=== PATIENT | female | born 1990 | race Caucasian/White ===

== ENCOUNTER 2020-11-02 15:30 | Day surgery (SDC) | payer OTHER ==
[2020-11-02 16:13] VITALS: BMI 40.8
[2020-11-02] MEDS ORDERED: hydrALAZINE 20 MG/ML VIAL SLOW IVP PRN (17:47)
== END 2020-11-02 19:15 | disposition home or self-care (01) ==
LOC: CSHLD/OP 15:30
PROVIDERS: ATTEND Advanced Practice Midwife
DX: O47.1 False labor at or after 37 completed weeks of gestation (principal); O48.0 Post-term pregnancy; Z3A.40 40 weeks gestation of pregnancy; Z88.0 Allergy status to penicillin; Z79.899 Other long term (current) drug therapy
CPT/HCPCS: 76815; 99282

== ENCOUNTER 2020-11-03 18:53 | Inpatient (IN) | payer OTHER ==
[~2020-11-03 18:53] MED LIST: Bupivacaine 0.25% HCL 30 ML VIAL ONE
[2020-11-03] MEDS ORDERED: hydrALAZINE 20 MG/ML VIAL SLOW IVP PRN ×2 (19:32→23:39)
[2020-11-03] MEDS ORDERED: Promethazine HCl 25 MG/ML VIAL IM PRN ×2 (19:32→23:39)
[2020-11-03] MEDS ORDERED: Morphine 10 MG/ML VIAL ONE (19:37)
[2020-11-03] MEDS ORDERED: Morphine 10 MG/ML VIAL IM SCH (19:45)
[2020-11-03] MEDS ORDERED: Morphine 2 MG/ML VIAL SLOW IVP SCH (20:30)
[2020-11-03] MEDS ORDERED: Lactated Ringer's 1,000 ML IV SCH ×3 (20:30→23:45)
[2020-11-03] MEDS ORDERED: Morphine 4 MG/ML VIAL ONE ×2 (20:55→23:21)
[2020-11-03] MEDS ORDERED: Morphine 4 MG/ML VIAL SLOW IVP SCH (23:30)
[2020-11-03] MEDS ORDERED: Butorphanol Tartrate 1 MG/ML VIAL SLOW IVP PRN (23:39)
[2020-11-03] MEDS ORDERED: Ondansetron PF 4 MG/2 ML Vial IVP PRN (23:39)
[2020-11-03] MEDS ORDERED: HYDROcodone/Acetaminophen 5/325 mg Tablet PO PRN (23:39)
[2020-11-03] MEDS ORDERED: Lidocaine 1% (PF) 30 ML VIAL SC PRN (23:39)
[2020-11-03] MEDS ORDERED: Ibuprofen 800 MG TAB PO PRN (23:39)
[2020-11-03] MEDS ORDERED: NS w/ Oxytocin 30 units 500 ML IV SCH (23:45)
[2020-11-03] MEDS ORDERED: Fentanyl 2 mcg/Bup 0.1% Cadd 100 ML ONE (23:58)
[2020-11-03] MEDS ORDERED: Vancomycin HCl 1 GM in Sodium Chloride 0.9% 250 ML 250 ML IVPB SCH (23:59)
[2020-11-04 00:14] LABS: Hemoglobin 12.7 g/dL (12.0-15.5); Mean Corpuscular HGB CONC 33.3 g/dL (32.0-36.0); Mean Corpuscular Hemoglobin 28.9 pg (27.0-33.0); Mean Corpuscular Volume 86.6 fl (81.6-98.3); Mean Platelet Volume 12.1 fl (7.4-10.4); Platelet Count 187 10x3/uL (150-450); RBC Distribution Width 13.1 % (11.5-14.5); White Blood Cell (WBC) Count 17.8 10x3/uL (3.5-10.5)
[2020-11-04 00:49] LABS: Hep B Surf Ag Non-Reactive S/CO (NonReactive); Syphilis Antibody Nonreactive (Nonreactive); Syphilis Antibody Index 0.03 S/CO (<1.00 Non-Reactive)
[2020-11-04] MEDS ORDERED: Naloxone HCl 0.4 mg/ml Vial IVP PRN ×2 (00:49)
[2020-11-04] MEDS ORDERED: Hydrocerin (Eucerin) Cream 120 gm Jar TOP PRN (00:49)
[2020-11-04] MEDS ORDERED: ePHEDrine Sulfate 50 MG/10 ML VIAL SLOW IVP PRN (00:49)
[2020-11-04] MEDS ORDERED: Lactated Ringer's 500 ML IV PRN (00:49)
[2020-11-04] MEDS ORDERED: Ondansetron PF 4 MG/2 ML Vial IVP PRN (00:49)
[2020-11-04] MEDS ORDERED: diphenhydrAMINE 50 MG/ML VIAL IVP PRN (00:49)
[2020-11-04] MEDS ORDERED: Acetaminophen 325 MG TAB PO PRN (00:49)
[2020-11-04] MEDS ORDERED: Promethazine HCl 25 MG/ML VIAL IM PRN (00:49)
[2020-11-04] MEDS ORDERED: Fentanyl 2 mcg/Bupivacaine 0.1% Cassette 100 ML EPIDURAL SCH (01:00)
[2020-11-04] MEDS ORDERED: Communication Order-Pharmacy FS SCH (01:00)
[2020-11-04 01:02] LABS: HBSAg Index 0.17 S/CO (0-0.99)
[2020-11-04 07:21] VITALS: BMI 41.1
[2020-11-04] MEDS ORDERED: Bisacodyl 10 MG SUPP PR PRN (07:21)
[2020-11-04] MEDS ORDERED: Benzocaine-Menthol 82.5 ML CAN TOP PRN (07:21)
[2020-11-04] MEDS ORDERED: Lanolin Ointment 7 GM TUBE TOP PRN (07:21)
[2020-11-04] MEDS ORDERED: Milk Of Magnesia 30 ML UDCUP PO PRN (07:21)
[2020-11-04] MEDS ORDERED: HYDROcodone/Acetaminophen 5/325 mg Tablet PO PRN ×2 (07:21)
[2020-11-04] MEDS ORDERED: hydrALAZINE 20 MG/ML VIAL SLOW IVP PRN (07:21)
[2020-11-04] MEDS ORDERED: NS w/ Oxytocin 30 units 500 ML IV SCH (07:21)
[2020-11-04] MEDS ORDERED: Misoprostol 200 MCG TAB VAG PRN (07:21)
[2020-11-04] MEDS ORDERED: Methylergonovine 0.2 MG/ML VIAL IM PRN (07:21)
[2020-11-04] MEDS: Ferrous Sulfate 325 MG TAB PO SCH ×2 (10:24→15:41)
[2020-11-04] MEDS: Docusate Calcium (SURFAK) 240 MG CAP PO SCH ×2 (10:25→21:31)
[2020-11-04] MEDS: Prenatal Vitamin 1 TAB PO SCH (10:26)
[2020-11-04] MEDS ORDERED: Witch Hazel-Glycerin 1 EACH JAR TOP PRN (14:47)
[2020-11-04] MEDS: Ibuprofen 800 MG TAB PO SCH ×2 (15:19→21:31)
[2020-11-04 20:42] LABS: SARS-CoV-2 NAA Rapid Test Not Detected (NotDetected)
[2020-11-05] MEDS: Ibuprofen 800 MG TAB PO SCH ×3 (06:27→21:10)
[2020-11-05] MEDS ORDERED: Boostrix 0.5 ML (Tdap) VIAL IM ONE (07:21)
[2020-11-05] MEDS: Ferrous Sulfate 325 MG TAB PO SCH ×2 (08:42→17:44)
[2020-11-05] MEDS: Docusate Calcium (SURFAK) 240 MG CAP PO SCH ×2 (09:49→21:10)
[2020-11-05] MEDS: Prenatal Vitamin 1 TAB PO SCH (09:49)
[2020-11-05] MEDS ORDERED: Witch Hazel-Glycerin 1 EACH JAR TOP PRN (14:14)
[2020-11-05] MEDS: Hydrocortisone Acetate 25 MG Suppository PR PRN (17:28)
[2020-11-06] MEDS: Ibuprofen 800 MG TAB PO SCH (04:55)
[2020-11-06] MEDS: Hydrocortisone Acetate 25 MG Suppository PR PRN (05:14)
[2020-11-06 07:57] VITALS: BP 106/53; TEMP 99
[2020-11-06] MEDS: Docusate Calcium (SURFAK) 240 MG CAP PO SCH (08:18)
[2020-11-06] MEDS: Prenatal Vitamin 1 TAB PO SCH (08:18)
== END 2020-11-06 10:52 | disposition home or self-care (01) | DRG 807 ==
LOC: CSHLD/OP 18:53 → CSHLD 23:40 → UNDOADMIN 11-04 07:28 → CSHPP 11-04 09:45 → CSHLD 11-04 09:45
PROVIDERS: ADMIT Student in an Organized Health Care Education/Training Program; ATTEND Student in an Organized Health Care Education/Training Program
PROC: 10E0XZZ Delivery of Products of Conception, External Approach (ICD-10-PCS; principal; 2020-11-05)
DX: O99.824 Streptococcus B carrier state complicating childbirth (principal); Z37.0 Single live birth; O87.2 Hemorrhoids in the puerperium; Z88.0 Allergy status to penicillin; O77.0 Labor and delivery complicated by meconium in amniotic fluid; Z3A.40 40 weeks gestation of pregnancy
CPT/HCPCS: 51702; 85027; 86780; 86850; 86900; 86901; 87340; 99285; J2270; J2550; J2590; J3370; J7050; S0020; U0002